=== PATIENT | male | born 1955 | race Caucasian/White ===

== ENCOUNTER → 2016-07-24 | Outpatient (CLI) | payer OTHER ==
--- NOTE | 2016-07-24 17:33 | US ---
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 Previous MRI examination is reviewed demonstrating distal quadriceps te ndinopathy and partial tear along the central and lateral margin. Technique: Informed consent was obtained. A timeout was performed. 4 mL of platelet-rich leukocyte-poor plasma was manufactured in standard fashion. Using standard sterile technique, lidocaine local anesthesia, and direct sonographic guidance, I ronn nced a 25-gauge needle into the central and lateral aspect of the distal right quadriceps tendon. Af ter infusion of lidocaine and 0.25% Marcaine, 4 mL of PRP was injected, targeting the central and lat eral aspects of the tendon. During injection of the central aspect of the tendon, an interstitial pa rtial tear was revealed, which was targeted for PRP treatment. Impression: Successful ultrasound-guided injection of the distal right quadriceps tendon with platel et-rich plasma. E:KATERINA/faustino
== END ==
LOC: FIMAGING 13:01
PROVIDERS: ATTEND Radiology Diagnostic Radiology
PROC: 3E023GC Introduction of Other Therapeutic Substance into Muscle, Percutaneous Approach (ICD-10-PCS; principal; 2016-07-24)
DX: S76.111A Strain of right quadriceps muscle, fascia and tendon, initial encounter (principal); S76.121A Laceration of right quadriceps muscle, fascia and tendon, initial encounter